=== PATIENT | male | born 1990 | race Asian ===

== ENCOUNTER 2016-07-14 14:58 | Outpatient (CLI) | payer OTHER | END 2016-07-14 14:59 | disposition home or self-care (01) | DX: G47.33 Obstructive sleep apnea (adult) (pediatric) (principal) ==

== ENCOUNTER 2016-09-16 15:11 | Outpatient (CLI) | payer OTHER | END 2016-09-16 15:12 | disposition home or self-care (01) | LOC: SC 15:11 | PROVIDERS: ATTEND Nurse Practitioner Family | DX: G47.33 Obstructive sleep apnea (adult) (pediatric) (principal) | CPT/HCPCS: 99212; 99213 ==